=== PATIENT | female | born 1940 | race Caucasian/White ===

== ENCOUNTER 2017-01-12 06:23 | Day surgery (SDC) | payer BC, MEDICARE ==
[2017-01-12] MEDS ORDERED: BUPIVACAINE/EPI 0.25% 1 VIAL VIAL ONE (07:02)
[2017-01-12] MEDS ORDERED: BACITRACIN 50,000 UNITS VIAL IM ONE (07:02)
[2017-01-12] MEDS ORDERED: ceFAZolin 1 GM/10 ML VIAL ONE (07:11)
[2017-01-12] MEDS: ceFAZolin 1 GM in NORMAL SALINE MINI-BAG+ 100 ML IV ONE (07:11)
[2017-01-12] MEDS: FAMOTIDINE IN SALINE, ISO-OSM 50 ML IV ONE (07:15)
[2017-01-12] MEDS: MIDAZOLAM HCL 2 MG/2 ML VIAL ONE (07:25)
[2017-01-12] MEDS ORDERED: FENTANYL 100 MCG/2 ML VIAL ONE (07:28)
[2017-01-12] MEDS ORDERED: LIDOCAINE HCL 2% 20 ML VIAL ONE (07:30)
[2017-01-12] MEDS ORDERED: LACTATED RINGERS 1,000 ML IV SCH ×3 (08:42→09:00)
[2017-01-12] MEDS ORDERED: MIDAZOLAM HCL 2 MG/2 ML SYR IV ONE ×2 (08:42→08:47)
[2017-01-12] MEDS ORDERED: LIDOCAINE HCL 1% 20 ML VIAL SUBCUT ONE ×2 (08:42→08:47)
[2017-01-12] MEDS ORDERED: FAMOTIDINE IN SALINE, ISO-OSM 20 MG/50 ML PIGGYBACK IV SCH ×2 (08:42→08:47)
[2017-01-12] MEDS ORDERED: MORPHINE SULFATE 10 MG/ML SYR IV PRN (08:47)
[2017-01-12] MEDS ORDERED: ONDANSETRON HCL 4 MG/2 ML VIAL IV PRN (08:47)
[2017-01-12] MEDS ORDERED: FENTANYL 100 MCG/2 ML VIAL IV PRN (08:47)
[2017-01-12 08:51] VITALS: TEMP 98.2
[2017-01-12 09:11] VITALS: BP 102/64; PULSE 66; RESP 12; O2SAT 93
--- NOTE | 2017-01-12 13:50 | OPERATIVE REPORT ---
DATE OF SURGERY: 01/12/17 SURGEON: Gerard Simpson DO ANESTHESIA: Local with sedation. PREOPERATIVE DIAGNOSIS: Left carpal tunnel syndrome. POSTOPERATIVE DIAGNOSIS: Left carpal tunnel syndrome. OPERATION PERFORMED: Left carpal tunnel release. ESTIMATED BLOOD LOSS: None. SPECIMENS REMOVED: None. COMPLICATIONS: None. PROCEDURE NOTE: The patient was brought to the operating room suite and after administration of conscious sedation, the left upper extremity was prepped and draped in a sterile fashion. All bony prominences were well padded. The left operative site was injected with 0.25% bupivacaine with epinephrine prior to incision. An incision was made over the volar aspect of the palm through a palmar crease. Dissection was carried down bluntly and sharply to the level of the transverse carpal fascia or ligament. Any small bleeders were cauterized with a bipolar device. The transverse carpal ligament was undermined, and an incision was made with a knife. The carpal tunnel contents were visualized through the small incision, including the median nerve. A groove device was used to protect the nerve during the incision and the ligament was isolated and was incised both proximally and distally avoiding all neurovascular structures. The median nerve was well visualized throughout the dissection. The incision site was then copiously irrigated with bacitracin infused with normal saline, and was then closed in a stepwise fashion utilizing 3-0 Vicryl, followed by 3-0 nylon at the level of the skin in simple interrupted sutures. An incision was dressed with bacitracin ointment, Xeroform, 4x4s, fluffs, cast padding, followed by a plaster splint and an Jhonny bandage. The patient was transferred from the operating room suite to the recovery room in stable condition. SAW
--- NOTE | 2017-01-19 14:39 | PREOPERATIVE H&P ---
History of Present Illness (Gerard Simpson DO; 12/18/2016 10:02 AM) The patient is a 76 year old female. Note:Patient presents for follow-up on her nerve conduction and EMG studies. Problem List/Past Medical (Joann Flores MD; 12/25/2016 11:58 AM) Insomnia, unspecified type (G47.00) Impaired fasting glucose (R73.01) Myalgia and myositis (729.1) Hyperlipidemia LDL goal <70 (E78.5) Adult-onset obesity (E66.9) Abnormal transaminases (R74.0) Bilateral hearing loss, unspecified hearing loss type (H91.93) Carpal tunnel syndrome of left wrist (354.0) (G56.02) This is a somewhat atypical presentation for carpal tunnel, but the patient's history is a little difficult to follow, and she tends to have atypical presentations in general. I gave her a carpal tunnel brace to try, and referred her for nerve conduction studies. Rather than taking Ibuprofen and Aspirin, I suggested she increase her aspirin dosing, as that is safer for maintenance of cardiovascular health. She can take up to 325mg aspirin three times daily with food in the short term, while awaiting her test resuls. If her carpal tunnel testing is negative, then a work up for other disorders, including arthritis, should be undertaken. Gastroesophageal reflux disease without esophagitis (K21.9) Polycythemia (D75.1) Primary thrombocytopenia (287.30) (D69.49) Cataract cortical, senile, left (H25.012) Visually significant cataract OS. Posterior vitreous detachment, both eyes (H43.813) Floaters OU. Stress incontinence in female (N39.3) Had consultation with Dr. Mckeon, but elected not to have the surgery. 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 Iodinated Contrast (Marked as Inactive) Family History (Erika Price, RN; 12/18/2016 9:27 AM) Sister 4 Diabetes mellitus, Type II. Sister 1 Diabetes mellitus, Type II. DVT. 86 years old with multiple medical issues. 2016 Sister 3 Glaucoma (?) Sister 4 alive , DM type II 2016 Father , Coronary artery disease 52 Mother , Cancer ? colon 90 Thrombotic Thrombocytopenic Purpura (TTP) Present in three generations of the extended family, in nieces and grandson. Factor V Leiden. Brother 4 brothers in all. One has had a heart attack and a stroke, another has hyperlipidemia and hypertension. One brother having problems speaking in 2016 stable. Social History (Erika Price RN; 12/18/2016 9:27 AM) Alcohol Use Drinks Rarely. Occasional alcohol use, up to one beer per night in the summer. Tobacco Use Never smoker. Medication History (Erika Price RN; 12/18/2016 9:27 AM) Amitriptyline HCl (10MG Tablet, 2 (two) Oral at bedtime, Taken starting 2015) Active. Aspirin (325 Tablet, 1 Oral every eight hours) Active. Multivitamins (1 Oral daily) Active. Virgin-3 Fish Oil (1000MG Capsule, 1 Oral two times daily, Taken starting 2013) Active. Carvedilol (3.125MG Tablet, 1 Oral two times daily) Active. Omeprazole (40MG Capsule DR, 1 (one) Oral daily, Taken starting 07/14/2016) Active. Vitamin E (1 tab Oral daily) Specific dose unknown - Active. Pravastatin Sodium (20MG Tablet, 1 Oral daily) Active. Flax Seed Oil (1000MG Capsule, 2 Oral daily) Active. Medications Reconciled Review of Systems (Erika Price RN; 12/18/2016 9:28 AM) General Not Present- Chills and Fever. Skin Not Present- Erythema, Skin Color Changes and Skin Problems. HEENT Not Present- Sleep Apnea. Neck Not Present- Neck Pain. Respiratory Not Present- Cough and Shortness of Breath. Cardiovascular Not Present- Chest Pain, Difficulty Breathing On Exertion, Fainting and Leg Pain and/or Swelling. Gastrointestinal Not Present- Abdominal Pain, Nausea and Vomiting. Female Genitourinary Not Present- Painful Urination. Musculoskeletal Not Present- Decreased Range of Motion, Joint Pain, Joint Stiffness, Joint Swelling, Muscle Pain and Muscle Weakness. Neurological Present- Numbness in extremities (left foot ; hx of lumbar stenosis ). Not Present- Dizziness, Focal Neurological Symptoms, Trouble walking and Weakness. Psychiatric Not Present- Anorexia, Anxiety and Depression. Endocrine Not Present- Weight Loss. Hematology Not Present- Bleeding Problems, DVT and Easy Bruising. Vitals (Erika Price RN; 12/18/2016 9:26 AM) 12/18/2016 9:23 AM Weight: 169.5 lb Height: 61.25in Body Surface Area: 1.77 m Body Mass Index: 31.77 kg/m Temp.: 97.3F Pulse: 80 (Regular) Resp.: 16 (Unlabored) BP: 120/74 (Sitting, Left Arm, Standard) Physical Exam (Gerard Simpson DO; 12/18/2016 10:03 AM) The physical exam findings are as follows: Note:Nerve conduction study and EMG demonstrates carpal tunnel syndrome on the left. There is also a component of ulnar neuropathy at the elbow which is likely related to the patient's previous history of surgery at the elbow. Assessment & Plan (Gerard Simpson DO; 12/18/2016 10:04 AM) Acute carpal tunnel syndrome, left (G56.02) Impression: After educating the patient regarding treatment options with their associated risks and benefits, the patient elected to proceed with surgical treatment of the injury/pathology with LEFT CARPAL TUNNEL RELEASE. The risks and benefits of the specific procedure were explained and all questions and concerns were addressed and answered. Post operative rehabilitation requirements and expectations for optimal outcome were reviewed and the patient confirmed understanding these and committed to compliance. All questions answered. The patient will be optimized medically by consultation with their primary care physician prior to their procedure. Signed by Gerard Simpson DO (12/18/2016 10:05 AM) Pt seen and examined at bed side. No change. Signed Gerard Simpson DO 2016. SAW
== END 2017-01-12 09:27 | disposition home or self-care (01) ==
LOC: SDS 06:23
PROVIDERS: ATTEND Orthopaedic Surgery
DX: G56.02 Carpal tunnel syndrome, left upper limb (principal); G47.00 Insomnia, unspecified; R73.01 Impaired fasting glucose; E78.5 Hyperlipidemia, unspecified; E66.9 Obesity, unspecified; D75.1 Secondary polycythemia; Z83.2 Family history of diseases of the blood and blood-forming organs and certain disorders involving the immune mechanism; M54.40 Lumbago with sciatica, unspecified side; I10 Essential (primary) hypertension; E83.52 Hypercalcemia; E88.01 Alpha-1-antitrypsin deficiency; I25.810 Atherosclerosis of coronary artery bypass graft(s) without angina pectoris; Z79.899 Other long term (current) drug therapy
CPT/HCPCS: J0690; J2250